=== PATIENT | male | born 1945 | race Caucasian/White ===

== ENCOUNTER 2016-12-27 06:30 | Inpatient (IN) | payer MEDICARE, BC ==
[~2016-12-27 06:30] MED LIST: ceFAZolin 1 GM in Premix Bag 1 BAG IV ONE
[2016-12-27] MEDS: Lactated Ringers 1,000 ML IV SCH ×2 (07:21→18:21)
--- NOTE | 2016-12-27 07:46 | PCM.PREANE ---
Preanesthetic Assessment - Anesthesia/Transfusion/Family Hx Anesthesia History: Prior Anesthesia Reaction (signigicant confusion leading to his request for spinal today) Other Type of Anesthesia Reaction Comment: confusion post anesthesia Family History of Anesthesia Reaction: No Transfusion History: No Prior Transfusion(s) Intubation History: Unknown - Review of Systems General: Weakness (Parkinsonian habitus) Pulmonary: No Symptoms Cardiovascular: No Symptoms Gastrointestinal: Constipation (chronic by hx) Neurological: Trouble Speaking, Change in Speech, Gait Disturbance, Other (all sx directed to Parkinsons) Other: Reports: Anxiety - Physical Assessment O2 Sat by Pulse Oximetry: 97 Respiratory Rate: 16 Vital Signs: Last Vital Signs Temp 98.1 F 12/27/16 07:00 Pulse 76 12/27/16 07:00 Resp 16 12/27/16 07:00 BP 180/103 H 12/27/16 07:00 Pulse Ox 97 12/27/16 07:00 Height: 6 ft 2 in Weight: 181 lb ASA Class: 3 Mental Status: Alert & Oriented x3 Airway Class: Mallampati = 2 Dentition: Reports: Normal Dentition Thyro-Mental Finger Breadths: 3 Mouth Opening Finger Breadths: 3 ROM/Head Extension: Limited/Partial (may be voluntary) Lungs: Clear to auscultation, Normal respiratory effort Cardiovascular: Regular Rate, Regular Rhythm, No Murmurs - Lab Values: Laboratory Last Values WBC 7.58 K/uL (4.0-11.0) 12/27/16 07:08 RBC 4.83 M/uL (4.50-5.90) 12/27/16 07:08 Hgb 12.5 g/dL (13.0-17.0) L 12/27/16 07:08 Hct 39.5 % (38.0-50.0) 12/27/16 07:08 MCV 81.8 fL (80.0-98.0) 12/27/16 07:08 MCH 25.9 pg (27.0-32.0) L 12/27/16 07:08 MCHC 31.6 g/dL (31.0-37.0) 12/27/16 07:08 RDW Std Deviation 42.4 fl (28.0-62.0) 12/27/16 07:08 RDW Coeff of Annamaria 14 % (11.0-15.0) 12/27/16 07:08 Plt Count 281 K/uL (150-400) 12/27/16 07:08 MPV 9.70 fL (7.40-12.00) 12/27/16 07:08 Neut % (Auto) 73.7 % (48.0-80.0) 12/27/16 07:08 Lymph % (Auto) 14.0 % (16.0-40.0) L 12/27/16 07:08 [place] % (Auto) 10.3 % (0.0-15.0) 12/27/16 07:08 Eos % (Auto) 1.7 % (0.0-7.0) 12/27/16 07:08 Baso % (Auto) 0.3 % (0.0-1.5) 12/27/16 07:08 Neut # (Auto) 5.6 K/uL (1.4-5.7) 12/27/16 07:08 Lymph # (Auto) 1.1 K/uL (0.6-2.4) 12/27/16 07:08 [place] # (Auto) 0.8 K/uL (0.0-0.8) 12/27/16 07:08 Eos # (Auto) 0.1 K/uL (0.0-0.7) 12/27/16 07:08 Baso # (Auto) 0.0 K/uL (0.0-0.1) 12/27/16 07:08 Nucleated RBC % 0.0 /100WBC 12/27/16 07:08 Nucleated RBCs # 0 K/uL 12/27/16 07:08 Sodium 140 mmol/L (136-146) 12/27/16 07:08 Potassium 4.0 mmol/L (3.5-5.1) 12/27/16 07:08 Chloride 107 mmol/L (98-110) 12/27/16 07:08 Carbon Dioxide 23 mmol/L (21-31) 12/27/16 07:08 BUN 20 mg/dL (6.0-23.0) 12/27/16 07:08 Creatinine 1.2 mg/dL (0.6-1.5) 12/27/16 07:08 Est Cr Clr Drug Dosing 64.62 mL/min 12/27/16 07:08 Estimated GFR (MDRD) 59.5 ml/min 12/27/16 07:08 Glucose 76 mg/dL (60-110) 12/27/16 07:08 Calcium 10.2 mg/dL (8.8-10.8) 12/27/16 07:08 - Allergies Allergies/Adverse Reactions: Allergies Allergy/AdvReac Type Severity Reaction Status Date / Time tamsulosin Allergy Hypotension Verified 12/22/16 13:14 - Blood Blood Available: No Product(s) Available: None - Anesthesia Plan Pre-Op Medication Ordered: None - Acknowledgements Anesthesia Type Planned: Spinal (with light sedation) Pt an Appropriate Candidate for the Planned Anesthesia: Yes Alternatives and Risks of Anesthesia Discussed w Pt/Guardian: Yes Pt/Guardian Understands and Agrees with Anesthesia Plan: Yes PreAnesthesia Questionnaire HEENT History: Reports: Other (see below) Other HEENT History: glasses Gastrointestinal History: Reports: Chronic constipation Genitourinary History: Reports: BPH, Prostate disorder Other Genitourinary History: enlarged prostate Neurological History: Reports: Parkinson's Psychiatric History: Reports: Anxiety Dermatologic History: Reports: None - Past Surgical History Head Surgeries/Procedures: Reports: None Musculoskeletal Surgical History: Reports: Knee replacement, Other (see below) Other Musculoskeletal Surgeries/Procedures:: left TKA, ( 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) Dermatological Surgical History: Reports: Skin biopsy - SUBSTANCE USE Smoking Status *Q: Never Smoker Days Per Week of Alcohol Use: 0 Recreational Drug Use History: No - HOME MEDS Home Medications: Home Meds Amantadine [Symmetrel] 100 mg PO BID 11/28/14 [History] Carbidopa/Levodopa [Sinemet 25-100 mg] 6 tab PO DAILY 11/28/14 [History] Finasteride [Proscar] 5 mg PO DAILY 11/28/14 [History] Sertraline [Zoloft] 100 mg PO DAILY 11/28/14 [History] rOPINIRole HCl [Requip] 4 mg PO ASDIRECTED 12/22/16 [History] - CURRENT (IN HOUSE) MEDS Current Meds: Current Medications Lactated Ringer's (Ringers, Lactated) 1,000 mls @ 100 mls/hr IV ASDIRECTED [facility] Last Admin: 12/27/16 07:21 Dose: 100 mls/hr Discontinued Medications Cefazolin Sodium/Dextrose 1 gm (/ Premix) 50 mls @ 100 mls/hr IV ONCALL ONE Stop: 12/27/16 00:30 Preanesthetic Assessment - ANESTHESIA/TRANSFUSION/FAMILY HX Other Type of Anesthesia Reaction Comment: confusion post anesthesia Family History of Anesthesia Reaction: No - PHYSICAL ASSESSMENT O2 Sat by Pulse Oximetry: 97 RR: 16 Vital Signs: Last Vital Signs Temp 98.1 F 12/27/16 07:00 Pulse 76 12/27/16 07:00 Resp 16 12/27/16 07:00 BP 180/103 H 12/27/16 07:00 Pulse Ox 97 12/27/16 07:00 Height: 6 ft 2 in Weight: 181 lb - LAB Values: Laboratory Last Values WBC 7.58 K/uL (4.0-11.0) 12/27/16 07:08 RBC 4.83 M/uL (4.50-5.90) 12/27/16 07:08 Hgb 12.5 g/dL (13.0-17.0) L 12/27/16 07:08 Hct 39.5 % (38.0-50.0) 12/27/16 07:08 MCV 81.8 fL (80.0-98.0) 12/27/16 07:08 MCH 25.9 pg (27.0-32.0) L 12/27/16 07:08 MCHC 31.6 g/dL (31.0-37.0) 12/27/16 07:08 RDW Std Deviation 42.4 fl (28.0-62.0) 12/27/16 07:08 RDW Coeff of Annamaria 14 % (11.0-15.0) 12/27/16 07:08 Plt Count 281 K/uL (150-400) 12/27/16 07:08 MPV 9.70 fL (7.40-12.00) 12/27/16 07:08 Neut % (Auto) 73.7 % (48.0-80.0) 12/27/16 07:08 Lymph % (Auto) 14.0 % (16.0-40.0) L 12/27/16 07:08 [place] % (Auto) 10.3 % (0.0-15.0) 12/27/16 07:08 Eos % (Auto) 1.7 % (0.0-7.0) 12/27/16 07:08 Baso % (Auto) 0.3 % (0.0-1.5) 12/27/16 07:08 Neut # (Auto) 5.6 K/uL (1.4-5.7) 12/27/16 07:08 Lymph # (Auto) 1.1 K/uL (0.6-2.4) 12/27/16 07:08 [place] # (Auto) 0.8 K/uL (0.0-0.8) 12/27/16 07:08 Eos # (Auto) 0.1 K/uL (0.0-0.7) 12/27/16 07:08 Baso # (Auto) 0.0 K/uL (0.0-0.1) 12/27/16 07:08 Nucleated RBC % 0.0 /100WBC 12/27/16 07:08 Nucleated RBCs # 0 K/uL 12/27/16 07:08 Sodium 140 mmol/L (136-146) 12/27/16 07:08 Potassium 4.0 mmol/L (3.5-5.1) 12/27/16 07:08 Chloride 107 mmol/L (98-110) 12/27/16 07:08 Carbon Dioxide 23 mmol/L (21-31) 12/27/16 07:08 BUN 20 mg/dL (6.0-23.0) 12/27/16 07:08 Creatinine 1.2 mg/dL (0.6-1.5) 12/27/16 07:08 Est Cr Clr Drug Dosing 64.62 mL/min 12/27/16 07:08 Estimated GFR (MDRD) 59.5 ml/min 12/27/16 07:08 Glucose 76 mg/dL (60-110) 12/27/16 07:08 Calcium 10.2 mg/dL (8.8-10.8) 12/27/16 07:08 - ALLERGIES Allergies/Adverse Reactions: Allergies Allergy/AdvReac Type Severity Reaction Status Date / Time tamsulosin Allergy Hypotension Verified 12/22/16 13:14
[2016-12-27] MEDS ORDERED: Midazolam 1 MG/ML 2 ML SDV ONE (07:48)
[2016-12-27] MEDS ORDERED: fentaNYL 100 MCG/2 ML SDV ONE (07:48)
[2016-12-27] MEDS ORDERED: Lidocaine 2% 5 ML SDV ONE (07:48)
[2016-12-27] MEDS ORDERED: Propofol 200 MG/20 ML SDV ONE (07:48)
--- NOTE | 2016-12-27 10:31 | PCM.POSTAN ---
POST ANESTHESIA ASSESSMENT - MENTAL STATUS Mental Status: alert, oriented - RESPIRATORY Respiratory Status: respiratory rate WNL, airway patent, O2 saturation stable - CARDIOVASCULAR CV Status: pulse rate WNL, blood pressure stable - GASTROINTESTINAL GI Status: no symptoms - PAIN Pain Score: 0 (spinal still active but receding) - POST OP HYDRATION Hydration Status: adequate & stable
[2016-12-27] MEDS: Carbidopa/Levodopa 25-100 MG Tab PO SCH ×3 (11:50→16:42)
[2016-12-27] MEDS: Amantadine 100 MG Cap PO SCH ×3 (11:50→16:43)
[2016-12-27] MEDS ORDERED: Sertraline 100 MG Tab PO SCH ×2 (11:55→11:57)
[2016-12-27] MEDS ORDERED: Belladonna Alkaloids/Opium 16.2-30 MG Supp RECTAL PRN (12:15)
[2016-12-27] MEDS: Sertraline 100 MG Tab PO SCH (12:25)
--- NOTE | 2016-12-27 13:07 | OR ---
SURGEON: Guero Aguila M.D. DATE OF PROCEDURE: 12/27/2016 PREOPERATIVE DIAGNOSIS: Benign prostatic hyperplasia. POSTOPERATIVE DIAGNOSIS: Benign prostatic hyperplasia. PROCEDURE PERFORMED: TURP. DESCRIPTION OF PROCEDURE: The patient was given spinal anesthesia, placed in dorsal lithotomy position, prepped and draped in sterile drapes. The 24, 26, and 28 sounds were passed through the urethra without difficulty with some dilating effect. The resectoscope was then placed in without difficulty. The prostate was resected in the usual manner, starting with the floor, going on laterally and anteriorly. At the end of the resection, all prostatic chips were removed. Both the ureteral orifices were intact. The area of the external sphincter was intact. A 22 three-way Minor catheter was introduced in the bladder, 60 mL in the balloon, and that was connected to bladder irrigation. The patient tolerated the procedure well. Estimated blood loss was 200 mL. He was moved to recovery room in good condition. ARIE / YOSHI /[id number]
[2016-12-27] MEDS: rOPINIRole 1 MG Tab PO SCH (13:10)
[2016-12-27] MEDS ORDERED: Sodium Chloride 0.9% 10 ML Syringe FLUSH PRN (18:37)
[2016-12-27] MEDS ORDERED: Sodium Chloride 0.9% 2.5 ML Syringe FLUSH PRN (18:37)
[2016-12-28] MEDS: Sertraline 100 MG Tab PO SCH (05:30)
[2016-12-28] MEDS: Carbidopa/Levodopa 25-100 MG Tab PO SCH ×5 (05:30→16:15)
[2016-12-28] MEDS: Amantadine 100 MG Cap PO SCH ×2 (05:31→13:49)
[2016-12-28] MEDS ORDERED: Sertraline 100 MG Tab PO SCH (06:00)
--- NOTE | 2016-12-28 07:50 | PCM48HPAN ---
Post Anesthesia Note - EVALUATION WITHIN 48HRS OF ANESTHETIC Vital Signs in Normal Range: Yes Patient Participated in Evaluation: Yes Respiratory Function Stable: Yes Airway Patent: Yes Cardiovascular Function Stable: Yes Hydration Status Stable: Yes Pain Control Satisfactory: Yes Nausea and Vomiting Control Satisfactory: Yes Mental Status Recovered: Yes
[2016-12-28] MEDS: rOPINIRole 1 MG Tab PO SCH ×2 (08:37→13:49)
[2016-12-28] MEDS ORDERED: Bisacodyl 10 MG Supp RECTAL ONE (10:20)
[2016-12-28] MEDS ORDERED: Finasteride 5 MG Tab PO SCH (19:00)
[2016-12-29] MEDS: Carbidopa/Levodopa 25-100 MG Tab PO SCH ×5 (06:09→16:59)
[2016-12-29] MEDS: Sertraline 100 MG Tab PO SCH (06:10)
[2016-12-29] MEDS: Amantadine 100 MG Cap PO SCH ×2 (06:10→15:00)
[2016-12-29] MEDS: rOPINIRole 1 MG Tab PO SCH ×2 (08:50→15:00)
--- NOTE | 2016-12-29 09:50 | PCM.SN ---
- Free Text/Narrative Note: 12/27 16 doing well. 12/28/16 doing well, home tomorrow
--- NOTE | 2016-12-29 12:51 | PCM.CONS ---
H&P History of Present Illness - General Admit Problem/Dx: Admission Diagnosis/Problem Admission Diagnosis/Problem Transurethral prostatectomy - History of Present Illness Initial Comments - Free Text/Narative: 71 yo male with pmh of Parkinson's who is admitted for an elective TURP. Patient is living at home and using walker for ambulation at baseline. Patient does have some cognitive impairment but according to he came out of anesthesia without much difficulty. He was feeling fine today but while walking from chair to bed without his walker he felt dizzy and fell against the wall. his shoulder and head hit the wall on his way down. He denies any loss of consciousness. He denies any chest pain or shortness of breath. Penis Pain Score (Numeric/FACES): 0 - Related Data Allergies/Adverse Reactions: Allergies Allergy/AdvReac Type Severity Reaction Status Date / Time tamsulosin Allergy Hypotension Verified 12/22/16 13:14 Home Medications: Home Meds Amantadine [Symmetrel] 100 mg PO BID 11/28/14 [History] Carbidopa/Levodopa [Sinemet 25-100 mg] 1 tab PO QID@09,12,15,17 11/28/14 [ History] Finasteride [Proscar] 5 mg PO DAILY 11/28/14 [History] Sertraline [Zoloft] 100 mg PO DAILY 11/28/14 [History] rOPINIRole HCl [Requip] 2 mg PO BID@08,14 12/22/16 [History] Carbidopa/Levodopa [Carbidopa-Levodopa 25-100 Tab] 2 tab PO DAILY@0600 12/27/16 [History] Nitrofurantoin [place]/Macrocryst [Macrobid] 100 mg PO BID #10 cap 12/29/16 [Rx] Past Medical History HEENT History: Reports: Other (see below) Other HEENT History: glasses Gastrointestinal History: Reports: Chronic constipation Genitourinary History: Reports: BPH, Prostate disorder Other Genitourinary History: enlarged prostate Neurological History: Reports: Parkinson's Psychiatric History: Reports: Anxiety Dermatologic History: Reports: None - Past Surgical History Head Surgeries/Procedures: Reports: None Musculoskeletal Surgical History: Reports: Knee replacement, Other (see below) Other Musculoskeletal Surgeries/Procedures:: left TKA, ( 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) Dermatological Surgical History: Reports: Skin biopsy Social & Family History - Tobacco Use Smoking Status *Q: Never Smoker - Alcohol Use Days Per Week of Alcohol Use: 0 - Recreational Drug Use Recreational Drug Use: No H&P Review of Systems - Review of Systems: Review Of Systems: See Below General: Reports: no symptoms HEENT: Reports: no symptoms Pulmonary: Reports: No Symptoms Cardiovascular: Reports: no symptoms Gastrointestinal: Reports: No symptoms Genitourinary: Reports: no symptoms Musculoskeletal: Reports: no symptoms Skin: Reports: no symptoms Psychiatric: Reports: no symptoms Neurological: Reports: No Symptoms Hematologic/Lymphatic: Reports: no symptoms Immunologic: Reports: no symptoms Exam - Exam Exam: See Below - Vital Signs Vital Signs: Last Vital Signs Temp 37.0 C 12/29/16 10:55 Pulse 92 12/29/16 11:00 Resp 16 12/29/16 11:00 BP 100/58 L 12/29/16 11:00 Pulse Ox 97 12/29/16 11:00 Weight: 82.1 kg - Exam General: alert, cooperative. No: mild distress HEENT: Mucosa moist & pink, Posterior pharynx clear Neck: No: lymphadenopathy Lungs: Clear to auscultation, Normal respiratory effort Cardiovascular: regular rate, regular rhythm Abdomen: normal bowel sounds, soft Extremities: 3, normal inspection, 10 Skin: warm, dry, intact Neuro Extensive - Motor, Sensory, Reflexes: CN II-XII intact, normal reflexes, tremor, other (feels light headed when standing up) - Patient Data Result Diagrams: 12/27/16 07:08 12/27/16 07:08 Consult PN Assessment/Plan Procedures: Procedures ASSAY OF PSA TOTAL (11/16/16) CHEST X-RAY 2VW FRONTAL&LATL (02/10/16) CINE/VID X-RAY THROAT/ESOPH (09/05/16) COMPLETE CBC W/AUTO DIFF WBC (02/10/16) CT HEAD/BRAIN W/O DYE (11/28/14) EMERGENCY DEPT VISIT (11/28/14) EMERGENCY DEPT VISIT (11/28/14) EVALUATE SPEECH PRODUCTION (11/21/14) INFLUENZA ASSAY W/OPTIC (10/03/14) METABOLIC PANEL TOTAL CA (02/10/16) MOTION FLUOROSCOPY/SWALLOW (09/05/16) NEUROMUSCULAR REEDUCATION (06/02/16) OFFICE/OUTPATIENT VISIT EST (03/30/16) OFFICE/OUTPATIENT VISIT EST (10/26/15) OFFICE/OUTPATIENT VISIT EST (12/23/14) OFFICE/OUTPATIENT VISIT EST (04/09/14) OFFICE/OUTPATIENT VISIT NEW (12/21/15) ORAL FUNCTION THERAPY (09/08/16) PPSV23 VACC 2 YRS+ SUBQ/IM (02/20/15) PT EVALUATION (04/21/16) ROUTINE VENIPUNCTURE (11/16/16) SPEECH/HEARING THERAPY (12/16/14) THERAPEUTIC ACTIVITIES (05/25/16) THERAPEUTIC EXERCISES (05/25/16) URINALYSIS AUTO W/SCOPE (12/22/16) URINALYSIS NONAUTO W/SCOPE (03/25/15) URINE CULTURE/COLONY COUNT (12/22/16) VIT D 1 25-DIHYDROXY (11/28/14) Problem List Initiated/Reviewed/Updated: Yes My Orders last 24 hours: My Active Orders 12/29/16 11:26 Telemetry Monitoring [Cardiac Monitoring] [RC] . DIRECTED 12/29/16 12:21 BASIC METABOLIC PANEL,BMP [CHEM] Routine 12/29/16 12:22 EKG Documentation Completion [RC] ROUTINE Chest 2V [CR] Routine Head wo Cont [CT] Routine 12/29/16 12:24 Orthostatic Vital Signs [RC] ASDIRECTED 12/29/16 12:38 CBC WITH AUTO DIFF [HEME] Routine Plan: 71 yo male s/p TURP with pmh of parkinson's who had a fall. The plan is to monitor overnight on telemetry. We will check CBC, BMP, CXR, EKG, head CT, and orthostatic vital signs.
--- NOTE | 2016-12-29 13:47 | CR ---
EXAMINATION: Two-view chest (PA and Lateral views). HISTORY: Fall. Comparison: 02/10/2016. FINDINGS: The trachea is midline. The cardiomediastinal silhouette is within normal limits. No pulmonary infil trates, effusions or pneumothorax. There is mild hyperinflation with a chronic interstitial prominen ce. Osseous structures appear unremarkable. IMPRESSION: No acute cardiopulmonary process.
--- NOTE | 2016-12-29 15:05 | CT ---
EXAMINATION: Non contrast CT head. Coronal and sagittal reformats. HISTORY: Fall FINDINGS: No evidence of intra or extra axial hemorrhage, mass, midline shift, hydrocephalus or edema. No hy poattenuation changes in the major vascular territories to suggest acute infarct. No abnormal intracranial calcifications are detected. No evidence of substantial vascular calcifica tions. Air-fluid levels are noted within the maxillary sinuses. Pituitary fossa appears unremarkable . The calvarium is intact. No evidence of skull fracture. IMPRESSION: 1. No acute intracranial findings. 2. Air-fluid levels within the maxillary sinuses, this could represent sinusitis versus hemorrhage.
[2016-12-29] MEDS ORDERED: Sodium Chloride 0.9% 1,000 ML IV SCH (15:15)
[2016-12-30 05:20] LABS: CHLORIDE,CL 110 mmol/L (98-110); SODIUM,NA 139 mmol/L (136-146)
[2016-12-30] MEDS: Carbidopa/Levodopa 25-100 MG Tab PO SCH ×5 (06:49→16:25)
[2016-12-30] MEDS: Amantadine 100 MG Cap PO SCH ×2 (06:49→12:59)
[2016-12-30] MEDS: Sertraline 100 MG Tab PO SCH (06:49)
[2016-12-30] MEDS: rOPINIRole 1 MG Tab PO SCH ×2 (07:47→12:59)
--- NOTE | 2016-12-30 09:13 | PCM.CONSN ---
- General Info Date of Service: 12/30/16 Admission Dx/Problem (Free Text): Admission Diagnosis/Problem Admission Diagnosis/Problem Transurethral prostatectomy Subjective Update: Doing well this morning. No dizziness or lightheadedness. Has sinus congestion. Denies fever, chills, night sweats. Eating well. Functional Status: Reports: pain controlled, tolerating diet, ambulating - Review of Systems General: Denies: Fever, Weakness HEENT: Reports: sinus congestion. Denies: headaches, sore throat, visual changes Pulmonary: Denies: shortness of breath, hemoptysis, wheezing Cardiovascular: Denies: Chest Pain, Palpitations, Edema Gastrointestinal: Denies: Abdominal pain, Nausea, Vomiting Musculoskeletal: Denies: neck pain, leg pain Skin: Denies: cyanosis Neurological: Denies: Confusion, Dizziness Psychiatric: Denies: confusion - Patient Data Vitals - most recent: Last Vital Signs Temp 36.2 C 12/30/16 08:00 Pulse 95 12/30/16 08:00 Resp 20 12/30/16 08:00 BP 120/70 12/30/16 08:00 Pulse Ox 95 12/30/16 08:00 Orthostatic Blood Pressure [ 74/54 Standing] Orthostatic Blood Pressure [ 120/70 Sitting] Orthostatic Blood Pressure [ 127/70 Supine] Weight - most recent: 82.1 kg I&O - last 24 hours: Intake & Output 12/29/16 12/30/16 12/30/16 22:59 06:59 14:59 Intake Total 1360 900 Output Total 395 1500 Balance 965 -600 Lab Results last 24 hrs: Laboratory Results - last 24 hr 12/29/16 12/29/16 12/30/16 Range/Units 12:40 12:40 04:14 WBC 12.48 H 7.72 (4.0-11.0) K/uL RBC 4.83 4.42 L (4.50-5.90) M/uL Hgb 12.7 L 11.7 L (13.0-17.0) g/dL Hct 39.5 35.9 L (38.0-50.0) % MCV 81.8 81.2 (80.0-98.0) fL MCH 26.3 L 26.5 L (27.0-32.0) pg MCHC 32.2 32.6 (31.0-37.0) g/dL RDW Std Deviation 42.5 42.1 (28.0-62.0) fl RDW Coeff of Annamaria 14 14 (11.0-15.0) % Plt Count 308 297 (150-400) K/uL MPV 10.10 9.90 (7.40-12.00) fL Neut % (Auto) 84.9 H 61.5 (48.0-80.0) % Lymph % (Auto) 6.1 L 22.4 (16.0-40.0) % [place] % (Auto) 8.0 10.0 (0.0-15.0) % Eos % (Auto) 0.8 5.7 (0.0-7.0) % Baso % (Auto) 0.2 0.4 (0.0-1.5) % Neut # (Auto) 10.6 H 4.8 (1.4-5.7) K/uL Lymph # (Auto) 0.8 1.7 (0.6-2.4) K/uL [place] # (Auto) 1.0 H 0.8 (0.0-0.8) K/uL Eos # (Auto) 0.1 0.4 (0.0-0.7) K/uL Baso # (Auto) 0.0 0.0 (0.0-0.1) K/uL Nucleated RBC % 0.0 0.0 /100WBC Nucleated RBCs # 0 0 K/uL Sodium 135 L (136-146) mmol/L Potassium 4.4 (3.5-5.1) mmol/L Chloride 104 (98-110) mmol/L Carbon Dioxide 22 (21-31) mmol/L BUN 26 H (6.0-23.0) mg/dL Creatinine 1.6 H (0.6-1.5) mg/dL Est Cr Clr Drug Dosing 48.46 mL/min Estimated GFR (MDRD) 42.7 ml/min Glucose 126 H (60-110) mg/dL Calcium 10.4 (8.8-10.8) mg/dL 12/30/16 Range/Units 04:14 WBC (4.0-11.0) K/uL RBC (4.50-5.90) M/uL Hgb (13.0-17.0) g/dL Hct (38.0-50.0) % MCV (80.0-98.0) fL MCH (27.0-32.0) pg MCHC (31.0-37.0) g/dL RDW Std Deviation (28.0-62.0) fl RDW Coeff of Annamaria (11.0-15.0) % Plt Count (150-400) K/uL MPV (7.40-12.00) fL Neut % (Auto) (48.0-80.0) % Lymph % (Auto) (16.0-40.0) % [place] % (Auto) (0.0-15.0) % Eos % (Auto) (0.0-7.0) % Baso % (Auto) (0.0-1.5) % Neut # (Auto) (1.4-5.7) K/uL Lymph # (Auto) (0.6-2.4) K/uL [place] # (Auto) (0.0-0.8) K/uL Eos # (Auto) (0.0-0.7) K/uL Baso # (Auto) (0.0-0.1) K/uL Nucleated RBC % /100WBC Nucleated RBCs # K/uL Sodium 139 (136-146) mmol/L Potassium 4.8 (3.5-5.1) mmol/L Chloride 110 (98-110) mmol/L Carbon Dioxide 21 (21-31) mmol/L BUN 22 (6.0-23.0) mg/dL Creatinine 1.1 (0.6-1.5) mg/dL Est Cr Clr Drug Dosing 70.49 mL/min Estimated GFR (MDRD) > 60.0 ml/min Glucose 80 (60-110) mg/dL Calcium 9.7 (8.8-10.8) mg/dL Med Orders - Current: Current Medications Amantadine HCl (Symmetrel) 100 mg PO DAILY@0600,1400 [facility] Last Admin: 12/30/16 06:49 Dose: 100 mg Belladonna Alkaloids/Opium (B & O Supprettes No. 15a) 1 supp RECTAL Q4H PRN PRN Reason: Spasms Carbidopa/Levodopa (Sinemet 25-100 Mg) 1 tab PO 0900,1200,1500,1700 [facility] Last Admin: 12/29/16 16:59 Dose: 1 tab Carbidopa/Levodopa (Sinemet 25-100 Mg) 2 tab PO DAILY@0600 [facility] Last Admin: 12/30/16 06:49 Dose: 2 tab Ropinirole HCl (Requip) 2 mg PO DAILY@0800,1400 [facility] Last Admin: 12/30/16 07:47 Dose: 2 mg Sertraline HCl (Zoloft) 100 mg PO DAILY@0600 [facility] Last Admin: 12/30/16 06:49 Dose: 100 mg Sodium Chloride (Saline Flush) 10 ml FLUSH ASDIRECTED PRN PRN Reason: Keep Vein Open Sodium Chloride (Saline Flush) 2.5 ml FLUSH ASDIRECTED PRN PRN Reason: Keep Vein Open Discontinued Medications Amantadine HCl (Symmetrel) 100 mg PO DAILY@0600,1400 [facility] Last Admin: 12/27/16 13:19 Dose: Not Given Bisacodyl (Dulcolax) 10 mg RECTAL ONETIME ONE Stop: 12/28/16 10:21 Last Admin: 12/28/16 11:02 Dose: 10 mg Fentanyl (Sublimaze) Confirm Administered Dose 100 mcg .ROUTE .STK-MED ONE Stop: 12/27/16 07:49 Finasteride (Proscar) 5 mg PO DAILY@1900 [facility] Lactated Ringer's (Ringers, Lactated) 1,000 mls @ 100 mls/hr IV ASDIRECTED [facility] Last Admin: 12/27/16 18:21 Dose: 100 mls/hr Cefazolin Sodium/Dextrose 1 gm (/ Premix) 50 mls @ 100 mls/hr IV ONCALL ONE Stop: 12/27/16 00:30 Last Admin: 12/27/16 11:35 Dose: Not Given Cefazolin Sodium/Dextrose (Ancef) Confirm Administered Dose 50 mls @ as directed .ROUTE .STK-MED ONE Stop: 12/27/16 07:55 Sodium Chloride (Normal Saline) 1,000 mls @ 125 mls/hr IV ASDIRECTED [facility] Stop: 12/29/16 23:14 Last Admin: 12/29/16 15:44 Dose: 125 mls/hr Lidocaine (Xylocaine-Mpf 2%) Confirm Administered Dose 5 ml .ROUTE .STK-MED ONE Stop: 12/27/16 07:49 Midazolam HCl (Versed 1 Mg/Ml) Confirm Administered Dose 2 mg .ROUTE .STK-MED ONE Stop: 12/27/16 07:49 Propofol (Diprivan 20 Ml) Confirm Administered Dose 200 mg .ROUTE .STK-MED ONE Stop: 12/27/16 07:49 Sertraline HCl (Zoloft) 100 mg PO DAILY@0600 [facility] Sertraline HCl (Zoloft) 100 mg PO DAILY@0600 [facility] Sertraline HCl (Zoloft) 100 mg PO DAILY@0600 [facility] - Exam Quality Assessment: DVT prophylaxis General: alert, oriented, cooperative, no acute distress HEENT: Pupils equal, Pupils reactive, EOMI, Mucous membr. moist/pink Neck: supple Lungs: Clear to auscultation, Normal respiratory effort Cardiovascular: Regular Rate, Regular Rhythm Abdomen: bowel sounds present, soft, no tenderness, no distension Back Exam: normal inspection Extremities: no edema, normal pulses, no tenderness/swelling, no calf tenderness Peripheral Pulses: 2+: radial (L), radial (R), posterior tibial (L), posterior tibial (R), dorsalis pedis (L), dorsalis pedis (R) Skin: warm, dry, intact Psy/Mental Status: alert, normal affect, normal mood Consult PN Assessment/Plan Procedures: Procedures ASSAY OF PSA TOTAL (11/16/16) CHEST X-RAY 2VW FRONTAL&LATL (02/10/16) CINE/VID X-RAY THROAT/ESOPH (09/05/16) COMPLETE CBC W/AUTO DIFF WBC (02/10/16) CT HEAD/BRAIN W/O DYE (11/28/14) EMERGENCY DEPT VISIT (11/28/14) EMERGENCY DEPT VISIT (11/28/14) EVALUATE SPEECH PRODUCTION (11/21/14) INFLUENZA ASSAY W/OPTIC (10/03/14) METABOLIC PANEL TOTAL CA (02/10/16) MOTION FLUOROSCOPY/SWALLOW (09/05/16) NEUROMUSCULAR REEDUCATION (06/02/16) OFFICE/OUTPATIENT VISIT EST (03/30/16) OFFICE/OUTPATIENT VISIT EST (10/26/15) OFFICE/OUTPATIENT VISIT EST (12/23/14) OFFICE/OUTPATIENT VISIT EST (04/09/14) OFFICE/OUTPATIENT VISIT NEW (12/21/15) ORAL FUNCTION THERAPY (09/08/16) PPSV23 VACC 2 YRS+ SUBQ/IM (02/20/15) PT EVALUATION (04/21/16) ROUTINE VENIPUNCTURE (11/16/16) SPEECH/HEARING THERAPY (12/16/14) THERAPEUTIC ACTIVITIES (05/25/16) THERAPEUTIC EXERCISES (05/25/16) URINALYSIS AUTO W/SCOPE (12/22/16) URINALYSIS NONAUTO W/SCOPE (03/25/15) URINE CULTURE/COLONY COUNT (12/22/16) VIT D 1 25-DIHYDROXY (11/28/14) (1) Orthostatic hypotension SNOMED Code(s): 09853944 Code(s): I95.1 - ORTHOSTATIC HYPOTENSION Priority: High Current Visit: Yes (2) Parkinson's disease SNOMED Code(s): 42174352 Code(s): G20 - PARKINSON'S DISEASE Priority: Low Current Visit: No Problem List Initiated/Reviewed/Updated: Yes Plan: 71 yo male s/p TURP with pmh of parkinson's who had a fall and found to have orthostatic hypotension. Patient was given 1 L normal saline bolus yesterday which improved blood pressure. He did have some continue orthostasis this am so was given an additional 500ml NS bolus which resolved orthostatic hypotension. does note that his "blood pressure is always up and down" even when he was first diagnosed with Parkinson's at [place]. CBC, BMP, CXR, and EKG unremarkable. CT of head revealed no acute pathology, some sinus congestion. Volume depletion after surgery most likely etiology of orthostatic hypotension leading to fall. Resolved now with IVF bolus. Discharge as per Dr. Aguila.
[2016-12-30] MEDS ORDERED: Sodium Chloride 0.9% 500 ML IV ONE (11:05)
[2016-12-30 16:34] VITALS: BP 122/81
--- NOTE | 2017-01-02 06:18 | DISCH ---
DATE OF DISCHARGE: 12/30/2016 PRIMARY CARE PHYSICIAN: Nate Pitt M.D. HOSPITAL COURSE: The patient is 71 years old. He had a TURP, was admitted to the hospital on the 4th of this month. Postoperatively, he did very well. The catheter was removed on the 2nd postoperative day. He was able to void without difficulty and the urine was reasonably clear. Pathology is pending. He was sent home on his previous home medications. ARIE BELLE /[id number]
== END 2016-12-30 17:32 | disposition home or self-care (01) | DRG 714 ==
LOC: MW.MS 06:30
PROVIDERS: ADMIT Urology; ATTEND Urology
PROC: 0VT08ZZ Resection of Prostate, Via Natural or Artificial Opening Endoscopic (ICD-10-PCS; principal; 2016-12-27)
DX: N40.0 Benign prostatic hyperplasia without lower urinary tract symptoms (principal); G20 Parkinson's disease; G31.84 Mild cognitive impairment of uncertain or unknown etiology; Z88.8 Allergy status to other drugs, medicaments and biological substances; Z79.899 Other long term (current) drug therapy; F41.9 Anxiety disorder, unspecified; I95.9 Hypotension, unspecified; W18.39XA Other fall on same level, initial encounter; Y93.89 Activity, other specified; Y92.019 Unspecified place in single-family (private) house as the place of occurrence of the external cause
CPT/HCPCS: 00914; 36415; 51703; 70450; 70450-26; 71020; 71020-26; 80048; 85025; 88305; 93005; 97161-GP; A9270-GY; C1769; J0690; J2250; J2704; J3010; J7040; J7120

== ENCOUNTER → 2017-01-30 | Outpatient (CLI) | payer MEDICARE, BC | LOC: MW.CHNEURO 08:00 | PROVIDERS: ATTEND Psychiatry & Neurology Neuromuscular Medicine | DX: G20 Parkinson's disease (principal) | CPT/HCPCS: 99214 ==

== ENCOUNTER → 2017-02-16 | Outpatient (CLI) | payer MEDICARE, BC | END | disposition home or self-care (01) | LOC: MW.CHFP 11:02 | PROVIDERS: ATTEND Emergency Medicine | DX: G90.3 Multi-system degeneration of the autonomic nervous system (principal); R55 Syncope and collapse | CPT/HCPCS: 36415; 80048; 85027; G0463 ==

== ENCOUNTER 2017-03-04 19:14 | Emergency (ER) | payer MEDICARE, BC ==
--- NOTE | 2017-03-04 19:45 | EDM.PDOC ---
ED HPI GENERAL MEDICAL PROBLEM - General Chief Complaint: Gastrointestinal Problem Stated Complaint: CONSTIPATION Time Seen by Provider: 03/04/17 19:36 Source of Information: Reports: Patient History Limitations: Reports: No Limitations - History of Present Illness INITIAL COMMENTS - FREE TEXT/NARRATIVE: HISTORY AND PHYSICAL: []71-year-old male presenting with concerns over not having a bowel movement today History of Present Illness: []has history of Parkinson disease carbidopa levodopa Review of Systems: As per history of present illness and below otherwise all systems reviewed and negative. Past medical history: As per history of present illness and as reviewed below otherwise noncontributory. Surgical history: As per history of present illness and as reviewed below otherwise noncontributory. Social history: No reported history of drug or alcohol abuse. Family history: As per history of present illness and as reviewed below otherwise noncontributory. Physical exam: Alert and oriented gentleman at bedside answering questions appropriately. Patient is requesting an enema. He took a bottle of magnesium citrate 3 hours before coming to the emergency department HEENT: Atraumatic, normocehpalic, pupils reactive, negative for conjunctival pallor or scleral icterus, mucous membranes moist, throat clear, neck supple, nontender, trachea midline. Lungs: Clear to auscultation, breath sounds equal bilaterally, chest non tender. Heart: S1S2, regular, negative for clicks, rubs, or JVD. Abdomen: Soft, nondistended, nontender. Negative for masses or hepatossplenmegaly. Negative for costovertebral tenderness. Pelvis: Stable nontender. Genitourinary: Deferred. Rectal: Deferred Extremities: Atraumatic, negative for cords or calf pain. Neurovascular unremarkable. Neuro: Awake, alert, oriented. Cranial nerves II through XII unremarkable. Cerebellum unremarkable. Motor and sensory unremarkable throughout. Exam nonfocal. Discussed with at some length of time the different remedies that can be tried for daily use in keeping soft and avoiding constipation With fleets enema and help with some disimpaction patient was able to empty the stool Diagnostics: [] Therapeutics: [Fleet Enema] Impression: [Constipation] Plan: [Home Take MiraLAX 1 capsule daily and beverage of choice May take [id number] stool softener Follow-up through primary care provider] Definitive disposition and diagnosis as appropriate pending reevaluation and review of above. Onset: Today Duration: Hour(s):, Getting Worse Location: Reports: Abdomen Abdominal Pain Score (Numeric/FACES): 3 - Related Data Allergies Allergy/AdvReac Type Severity Reaction Status Date / Time tamsulosin Allergy Hypotension Verified 03/04/17 19:17 Home Meds: Home Meds Amantadine [Symmetrel] 100 mg PO TID 11/28/14 [History] Carbidopa/Levodopa [Sinemet 25-100 mg] 1 tab PO DAILY 11/28/14 [History] Sertraline [Zoloft] 100 mg PO DAILY 11/28/14 [History] rOPINIRole HCl [Requip] 2 mg PO DAILY 12/22/16 [History] Past Medical History HEENT History: Reports: None Other HEENT History: glasses Cardiovascular History: Reports: None Respiratory History: Reports: None Gastrointestinal History: Reports: Chronic Constipation Genitourinary History: Reports: BPH, Prostate Disorder Other Genitourinary History: enlarged prostate Musculoskeletal History: Reports: None Neurological History: Reports: Parkinson's Psychiatric History: Reports: Anxiety Endocrine/Metabolic History: Reports: None Hematologic History: Reports: None Immunologic History: Reports: None Oncologic (Cancer) History: Reports: None Dermatologic History: Reports: None - Infectious Disease History Infectious Disease History: Reports: Chicken Pox, Measles, Mumps - Past Surgical History Head Surgeries/Procedures: Reports: None HEENT Surgical History: Reports: None GI Surgical History: Reports: None Musculoskeletal Surgical History: Reports: Knee Replacement Dermatological Surgical History: Reports: Skin Biopsy Social & Family History - Tobacco Use Smoking Status *Q: Never Smoker - Caffeine Use Caffeine Use: Reports: Coffee - Alcohol Use Days Per Week of Alcohol Use: 0 - Recreational Drug Use Recreational Drug Use: No ED ROS GENERAL - Review of Systems Review Of Systems: ROS reveals no pertinent complaints other than HPI. ED EXAM, GI/ABD - Physical Exam Exam: See Below (See dictation) Course - Vital Signs Last Recorded V/S: Last Vital Signs Temp 36.2 C 03/04/17 19:17 Pulse 97 03/04/17 19:17 Resp 18 03/04/17 19:17 BP 172/92 H 03/04/17 19:17 Pulse Ox 96 03/04/17 19:17 Departure - Departure Time of Disposition: 20:38 Disposition: Home, Self-Care 01 Condition: good Clinical Impression: Constipation - Discharge Information Instructions: Constipation, Adult, [id number] Forms: ED Department Discharge Additional Instructions: The following information is given to patients seen in the emergency department who are being discharged to home. This information is to outline your options for follow-up care. We provide all patients seen in our emergency department with a follow-up referral. The need for follow-up, as well as the timing and circumstances, are variable depending upon the specifics of your emergency department visit. If you don't have a primary care physician on staff, we will provide you with a referral. We always advise you to contact your personal physician following an emergency department visit to inform them of the circumstance of the visit and for follow-up with them and/or the need for any referrals to a consulting specialist. The emergency department will also refer you to a specialist when appropriate. This referral assures that you have the opportunity for followup care with a specialist. All of these measure are taken in an effort to provide you with optimal care, which includes your followup. Under all circumstances we always encourage you to contact your private physician who remains a resource for coordinating your care. When calling for followup care, please make the office aware that this follow-up is from your recent emergency room visit. If for any reason you are refused follow-up, please contact the [facility] emergency department at and asked to speak to the emergency department charge nurse. Constipation can be controlled with use of MiraLAX and other available over-the- counter agents He may try a mixture of Mylanta mineral oil and milk of magnesia daily
[2017-03-04 20:50] VITALS: BP 130/82
== END 2017-03-04 20:49 | disposition home or self-care (01) ==
LOC: MW.ED 19:14
DX: K59.00 Constipation, unspecified (principal); G20 Parkinson's disease; F41.9 Anxiety disorder, unspecified; Z88.8 Allergy status to other drugs, medicaments and biological substances; Z79.899 Other long term (current) drug therapy; Z96.659 Presence of unspecified artificial knee joint
CPT/HCPCS: 99282; 99283

== ENCOUNTER 2017-10-29 11:13 | Observation (INO) | payer MEDICARE, BC ==
[2017-10-29] MEDS ORDERED: Sodium Chloride 0.9% 2.5 ML Syringe FLUSH PRN (11:26)
[2017-10-29] MEDS ORDERED: Sodium Chloride 0.9% 10 ML Syringe FLUSH PRN (11:26)
--- NOTE | 2017-10-29 11:28 | EDM.PDOC ---
ED HPI GENERAL MEDICAL PROBLEM - General Chief Complaint: General Stated Complaint: WEAKNESS Time Seen by Provider: 10/29/17 11:18 - History of Present Illness INITIAL COMMENTS - FREE TEXT/NARRATIVE: HISTORY AND PHYSICAL: History of present illness: The patient is a 72-year-old male who arrives via EMS with after a 30 to 60 second episode of blank stare and then brief syncope which occurred at home without any trauma. The tells me he has a long-standing history of Parkinson's which has been progressing over the last 6 months with more frequent falls and gait instability and he also has a history of orthostatic hypotension. The patient has had no systemic complaints recently of fever chills cough chest pain shortness of breath and has had no vomiting or diarrhea. The states that he was having a normal day when he was sitting at the counter and she noted him to be staring with a blank stare and not responding to her voice. When she approached him he then proceeded to slump forward and she caught him and he did not fall to the ground. She said the entire episode lasted at the most 60 seconds but she cannot be completely sure. He did not have any abnormal motor activity during that time and he had no loss of bowel or bladder. The patient currently has no complaints here in the ED of headache chest pain shortness of breath or any focal neurologic changes in his extremities. He has a long-standing history of tremors and twitching in his legs due to the Parkinson's. The said he did have a fall recently and he has some residual scratches on the left side of his face but would definitely did not pass out or blackout. She says that he'll have episodes where he "nods off" when he is in his recliner but she is always attributed those to falling asleep and his eyes are always closed and this was very different because his eyes were wide open. Review of systems: As per history of present illness and below otherwise all systems reviewed and negative. Past medical history: As per history of present illness and as reviewed below otherwise noncontributory. Surgical history: As per history of present illness and as reviewed below otherwise noncontributory. Social history: No reported history of drug or alcohol abuse. Family history: As per history of present illness and as reviewed below otherwise noncontributory. Physical exam: Gen.: Well-developed well-nourished man who is nontoxic and speaking at his baseline here in the ED. He is visible twitching of his lower legs left greater than right which is baseline per the . Vital signs were noted by me HEENT: Atraumatic, normocephalic, pupils reactive, negative for conjunctival pallor or scleral icterus, mucous membranes moist, throat clear, neck supple, nontender, trachea midline. Lungs: Clear to auscultation, breath sounds equal bilaterally, chest nontender. Heart: S1S2, regular rate and rhythm no overt murmurs Abdomen: Soft, nondistended, nontender. Negative for masses or hepatosplenomegaly. NABS Pelvis: Stable nontender. Genitourinary: Deferred. Rectal: Deferred. Extremities: Atraumatic, negative for cords or calf pain. Neurovascular unremarkable. No pedal edema and no palpable bony deformities or tenderness Neuro: Awake, alert, oriented. Motor and sensory unremarkable throughout. Exam nonfocal. Back: There are no midline step-offs tenderness or defects of the thoracic or lumbar spine no CVA tenderness and no soft tissue tenderness Diagnostics: EKG CBC CMP INR troponin TSH chest x-ray CT scan of the head Therapeutics: IV O2 monitor aspirin if CT head is negative Case was discussed with Dr. Balderrama who accepts the patient for observation admission and I have also gone over all testing results with the patient and at bedside. Impression: Brief syncopal event etiology unclear Definitive disposition and diagnosis as appropriate pending reevaluation and review of above. - Related Data Allergies Allergy/AdvReac Type Severity Reaction Status Date / Time tamsulosin Allergy Hypotension Verified 10/29/17 11:14 Home Meds: Home Meds Amantadine [Symmetrel] 100 mg PO BID 11/28/14 [History] Carbidopa/Levodopa [Sinemet 25-100 mg] 1 tab PO BEDTIME 11/28/14 [History] Sertraline [Zoloft] 100 mg PO DAILY 11/28/14 [History] rOPINIRole HCl [Requip] 2 mg PO BID 12/22/16 [History] Carbidopa/Levodopa [Carbidopa-Levo 10-100 MG ODT] 100 mg PO Q8HR 10/29/17 [ History] Past Medical History HEENT History: Reports: None Other HEENT History: glasses Cardiovascular History: Reports: None Respiratory History: Reports: None Gastrointestinal History: Reports: Chronic Constipation Genitourinary History: Reports: BPH, Prostate Disorder Other Genitourinary History: enlarged prostate Musculoskeletal History: Reports: None Neurological History: Reports: Parkinson's Psychiatric History: Reports: Anxiety Endocrine/Metabolic History: Reports: None Hematologic History: Reports: None Immunologic History: Reports: None Oncologic (Cancer) History: Reports: None Dermatologic History: Reports: None - Infectious Disease History Infectious Disease History: Reports: Chicken Pox, Measles, Mumps - Past Surgical History Head Surgeries/Procedures: Reports: None HEENT Surgical History: Reports: None Cardiovascular Surgical History: Reports: None Respiratory Surgical History: Reports: None GI Surgical History: Reports: None Male Surgical History: Reports: None Neurological Surgical History: Reports: None Musculoskeletal Surgical History: Reports: Knee Replacement Oncologic Surgical History: Reports: None Dermatological Surgical History: Reports: Skin Biopsy Social & Family History - Family History Family Medical History: Noncontributory - Tobacco Use Smoking Status *Q: Never Smoker - Caffeine Use Caffeine Use: Reports: Coffee - Alcohol Use Days Per Week of Alcohol Use: 0 - Recreational Drug Use Recreational Drug Use: No ED ROS GENERAL - Review of Systems Review Of Systems: ROS reveals no pertinent complaints other than HPI. ED EXAM, GENERAL - Physical Exam Exam: See Below (See dictation) Course - Vital Signs Last Recorded V/S: Last Vital Signs Temp 36.4 C 10/29/17 11:14 Pulse 73 10/29/17 12:40 Resp 18 10/29/17 12:40 BP 140/79 10/29/17 12:40 Pulse Ox 99 10/29/17 12:40 - Orders/Labs/Meds Orders: Active Orders 24 hr Category Date Time Status Patient Status [ADT] Stat ADT 10/29/17 12:51 Ordered Blood Glucose Check, Bedside [RC] ONETIME Care 10/29/17 11:27 Active Cardiac Monitoring [RC] . DIRECTED Care 10/29/17 11:26 Active EKG Documentation Completion [RC] STAT Care 10/29/17 11:26 Active Oxygen Therapy, ED [RC] ASDIRECTED Care 10/29/17 11:26 Active Pulse Oximetry [RC] ASDIRECTED Care 10/29/17 11:26 Active Chest 1V Frontal [CR] Stat Exams 10/29/17 11:27 Taken Head wo Cont [CT] Stat Exams 10/29/17 11:27 Taken COMPREHENSIVE METABOLIC PN,CMP [CHEM] Stat Lab 10/29/17 11:37 Results TROPONIN I [CHEM] Stat Lab 10/29/17 11:37 Results TSH [CHEM] Stat Lab 10/29/17 11:37 Results Sodium Chloride 0.9% [Saline Flush] Med 10/29/17 11:26 Active 10 ml FLUSH ASDIRECTED PRN Sodium Chloride 0.9% [Saline Flush] Med 10/29/17 11:26 Active 2.5 ml FLUSH ASDIRECTED PRN Saline Lock Insert [OM.PC] Stat Oth 10/29/17 11:26 Ordered Medication Orders Sodium Chloride (Saline Flush) 10 ml FLUSH ASDIRECTED PRN PRN Reason: Keep Vein Open Last Admin: 10/29/17 11:37 Dose: 10 ml Sodium Chloride (Saline Flush) 2.5 ml FLUSH ASDIRECTED PRN PRN Reason: Keep Vein Open Last Admin: 10/29/17 11:37 Dose: 2.5 ml Labs: Laboratory Tests 10/29/17 10/29/17 10/29/17 Range/Units 11:37 11:37 11:37 WBC 9.50 (4.0-11.0) K/uL RBC 4.78 (4.50-5.90) M/uL Hgb 12.8 L (13.0-17.0) g/dL Hct 39.5 (38.0-50.0) % MCV 82.6 (80.0-98.0) fL MCH 26.8 L (27.0-32.0) pg MCHC 32.4 (31.0-37.0) g/dL RDW Std Deviation 42.1 (28.0-62.0) fl RDW Coeff of Annamaria 14 (11.0-15.0) % Plt Count 195 (150-400) K/uL MPV 9.70 (7.40-12.00) fL Neut % (Auto) 79.3 (48.0-80.0) % Lymph % (Auto) 11.9 L (16.0-40.0) % [place] % (Auto) 7.6 (0.0-15.0) % Eos % (Auto) 0.9 (0.0-7.0) % Baso % (Auto) 0.3 (0.0-1.5) % Neut # (Auto) 7.5 H (1.4-5.7) K/uL Lymph # (Auto) 1.1 (0.6-2.4) K/uL [place] # (Auto) 0.7 (0.0-0.8) K/uL Eos # (Auto) 0.1 (0.0-0.7) K/uL Baso # (Auto) 0.0 (0.0-0.1) K/uL Nucleated RBC % 0.0 /100WBC Nucleated RBCs # 0 K/uL INR 1.04 Sodium 139 (136-146) mmol/L Potassium 4.1 (3.5-5.1) mmol/L Chloride 104 (98-110) mmol/L Carbon Dioxide 26 (21-31) mmol/L BUN 21 (6.0-23.0) mg/dL Creatinine 1.5 (0.6-1.5) mg/dL Est Cr Clr Drug Dosing 50.65 mL/min Estimated GFR (MDRD) 45.9 ml/min Glucose 104 (60-110) mg/dL POC Glucose (60-110) mg/dL Calcium 10.3 (8.8-10.8) mg/dL Total Bilirubin 0.4 (0.1-1.5) mg/dL AST 14 (5-40) IU/L ALT < 6 L (8-54) IU/L Alkaline Phosphatase 105 (40-150) Troponin I < 0.10 (0.0-0.29) NG/ML Total Protein 6.6 (6.0-8.0) g/dL Albumin 3.8 (3.4-4.8) g/dL Globulin 2.8 (2.0-3.5) g/dL Albumin/Globulin Ratio 1.4 (1.3-2.8) 10/29/17 Range/Units 11:42 WBC (4.0-11.0) K/uL RBC (4.50-5.90) M/uL Hgb (13.0-17.0) g/dL Hct (38.0-50.0) % MCV (80.0-98.0) fL MCH (27.0-32.0) pg MCHC (31.0-37.0) g/dL RDW Std Deviation (28.0-62.0) fl RDW Coeff of Annamaria (11.0-15.0) % Plt Count (150-400) K/uL MPV (7.40-12.00) fL Neut % (Auto) (48.0-80.0) % Lymph % (Auto) (16.0-40.0) % [place] % (Auto) (0.0-15.0) % Eos % (Auto) (0.0-7.0) % Baso % (Auto) (0.0-1.5) % Neut # (Auto) (1.4-5.7) K/uL Lymph # (Auto) (0.6-2.4) K/uL [place] # (Auto) (0.0-0.8) K/uL Eos # (Auto) (0.0-0.7) K/uL Baso # (Auto) (0.0-0.1) K/uL Nucleated RBC % /100WBC Nucleated RBCs # K/uL INR Sodium (136-146) mmol/L Potassium (3.5-5.1) mmol/L Chloride (98-110) mmol/L Carbon Dioxide (21-31) mmol/L BUN (6.0-23.0) mg/dL Creatinine (0.6-1.5) mg/dL Est Cr Clr Drug Dosing mL/min Estimated GFR (MDRD) ml/min Glucose (60-110) mg/dL POC Glucose 109 (60-110) mg/dL Calcium (8.8-10.8) mg/dL Total Bilirubin (0.1-1.5) mg/dL AST (5-40) IU/L ALT (8-54) IU/L Alkaline Phosphatase (40-150) Troponin I (0.0-0.29) NG/ML Total Protein (6.0-8.0) g/dL Albumin (3.4-4.8) g/dL Globulin (2.0-3.5) g/dL Albumin/Globulin Ratio (1.3-2.8) Meds: Medications Generic Name Dose Route Start Last Admin Trade Name Freq PRN Reason Stop Dose Admin Sodium Chloride 10 ml 10/29/17 11:26 10/29/17 11:37 Saline Flush FLUSH 10 ml ASDIRECTED PRN Administration Keep Vein Open Sodium Chloride 2.5 ml 10/29/17 11:26 10/29/17 11:37 Saline Flush FLUSH 2.5 ml ASDIRECTED PRN Administration Keep Vein Open Discontinued Medications Generic Name Dose Route Start Last Admin Trade Name Vero PRN Reason Stop Dose Admin Aspirin 325 mg 10/29/17 12:11 10/29/17 12:39 Aspirin PO 10/29/17 12:12 325 mg ONETIME ONE Administration Departure - Departure Time of Disposition: 12:54 Disposition: Refer to Observation Condition: Good Clinical Impression: Syncope Qualifiers: Syncope type: unspecified Qualified Code(s): R55 - Syncope and collapse - Discharge Information Forms: ED Department Discharge - My Orders Last 24 Hours: My Active Orders 10/29/17 11:26 Cardiac Monitoring [RC] . DIRECTED EKG Documentation Completion [RC] STAT Oxygen Therapy, ED [RC] ASDIRECTED Pulse Oximetry [RC] ASDIRECTED Sodium Chloride 0.9% [Saline Flush] 10 ml FLUSH ASDIRECTED PRN Sodium Chloride 0.9% [Saline Flush] 2.5 ml FLUSH ASDIRECTED PRN Saline Lock Insert [OM.PC] Stat 10/29/17 11:27 Blood Glucose Check, Bedside [RC] ONETIME Chest 1V Frontal [CR] Stat Head wo Cont [CT] Stat 10/29/17 11:37 COMPREHENSIVE METABOLIC PN,CMP [CHEM] Stat TROPONIN I [CHEM] Stat TSH [CHEM] Stat 10/29/17 12:51 Patient Status [ADT] Stat - Assessment/Plan Last 24 Hours: My Active Orders 10/29/17 11:26 Cardiac Monitoring [RC] . DIRECTED EKG Documentation Completion [RC] STAT Oxygen Therapy, ED [RC] ASDIRECTED Pulse Oximetry [RC] ASDIRECTED Sodium Chloride 0.9% [Saline Flush] 10 ml FLUSH ASDIRECTED PRN Sodium Chloride 0.9% [Saline Flush] 2.5 ml FLUSH ASDIRECTED PRN Saline Lock Insert [OM.PC] Stat 10/29/17 11:27 Blood Glucose Check, Bedside [RC] ONETIME Chest 1V Frontal [CR] Stat Head wo Cont [CT] Stat 10/29/17 11:37 COMPREHENSIVE METABOLIC PN,CMP [CHEM] Stat TROPONIN I [CHEM] Stat TSH [CHEM] Stat 10/29/17 12:51 Patient Status [ADT] Stat
[2017-10-29] MEDS ORDERED: Aspirin 325 MG Tab PO ONE (12:11)
[2017-10-29 12:20] LABS: CHLORIDE,CL 104 mmol/L (98-110); SODIUM,NA 139 mmol/L (136-146)
--- NOTE | 2017-10-29 14:40 | PCM.HP ---
H&P History of Present Illness - History of Present Illness Initial Comments - Free Text/Narative: 72 yo male with pmh of parkinson's disease and orthostatic hypotension who presents following a syncopal episode. Patient was sitting on a counter stool when he passed out. His noticed him starring blankly so she was able to get to him and have him fall slowly to the ground. He has been having falls and collapses recently but this was the first time he lost consciousness. The syncopal episode lasted about a minute. He denies any shortness of breath, chest pain, or fevers. - Related Data Allergies/Adverse Reactions: Allergies Allergy/AdvReac Type Severity Reaction Status Date / Time [id number] Reductase Allergy Other Verified 10/29/17 14:55 Inhibitor tamsulosin Allergy Hypotension Verified 10/29/17 11:14 Home Medications: Home Meds Amantadine [Symmetrel] 100 mg PO BID 11/28/14 [History] Sertraline [Zoloft] 100 mg PO DAILY 11/28/14 [History] rOPINIRole HCl [Requip] 2 mg PO BID 12/22/16 [History] Carbidopa/Levodopa [Carbidopa-Levo ER 50-200] 50 - 200 mg PO BEDTIME 10/29/17 [ History] Carbidopa/Levodopa [Carbidopa-Levodopa 25-100] 50 - 200 mg PO Q3H 10/29/17 [ History] Cholecalciferol (Vitamin D3) [Vitamin D3] 4,000 unit PO DAILY 10/29/17 [History] Polyethylene Glycol 3350 [MiraLAX] 17 gm PO DAILY 10/29/17 [History] Past Medical History HEENT History: Reports: None Other HEENT History: glasses Cardiovascular History: Reports: None Respiratory History: Reports: None Gastrointestinal History: Reports: Chronic Constipation Genitourinary History: Reports: BPH, Prostate Disorder Other Genitourinary History: enlarged prostate Musculoskeletal History: Reports: None Neurological History: Reports: Parkinson's Psychiatric History: Reports: Anxiety Endocrine/Metabolic History: Reports: None Hematologic History: Reports: None Immunologic History: Reports: None Oncologic (Cancer) History: Reports: None Dermatologic History: Reports: None - Infectious Disease History Infectious Disease History: Reports: Chicken Pox, Measles, Mumps - Past Surgical History Head Surgeries/Procedures: Reports: None HEENT Surgical History: Reports: None Cardiovascular Surgical History: Reports: None Respiratory Surgical History: Reports: None GI Surgical History: Reports: None Male Surgical History: Reports: None Neurological Surgical History: Reports: None Musculoskeletal Surgical History: Reports: Knee Replacement Oncologic Surgical History: Reports: None Dermatological Surgical History: Reports: Skin Biopsy Social & Family History - Family History Family Medical History: Noncontributory - Tobacco Use Smoking Status *Q: Never Smoker - Caffeine Use Caffeine Use: Reports: Coffee - Alcohol Use Days Per Week of Alcohol Use: 0 - Recreational Drug Use Recreational Drug Use: No H&P Review of Systems - Review of Systems: Review Of Systems: ROS reveals no pertinent complaints other than HPI. Exam - Exam Exam: See Below - Vital Signs Vital Signs: Last Vital Signs Temp 36.4 C 10/29/17 11:14 Pulse 69 10/29/17 13:47 Resp 18 10/29/17 13:47 BP 166/97 H 10/29/17 13:47 Pulse Ox 100 10/29/17 13:47 Weight: 81.647 kg - Exam General: Alert, Cooperative HEENT: Mucosa Moist & [employer] Neck: Supple, Trachea Midline Lungs: Normal Respiratory Effort Cardiovascular: Regular Rate, Regular Rhythm GI/Abdominal Exam: Soft, Non-Tender Extremities: No Pedal Edema Neurological: Cranial Nerves Intact, Reflexes Equal Bilateral, Strength Equal Bilateral, Other (shuffled gate, slow finger pointing, cogwheeled muscle tone) - Patient Data Result Diagrams: 10/29/17 11:37 10/29/17 11:37 *Q Meaningful Use (ADM) - VTE *Q VTE Criteria *Q: - Stroke *Q Stroke Criteria *Q: - AMI *Q AMI Criteria *Q: Problem List Initiated/Reviewed/Updated: Yes Orders Last 24hrs: Active Orders 24 hr Category Date Time Status Antiembolic Devices [RC] PER UNIT ROUTINE Care 10/29/17 14:35 Ordered Oxygen Therapy [RC] PRN Care 10/29/17 14:34 Ordered VTE/DVT Education [RC] PER UNIT ROUTINE Care 10/29/17 14:34 Ordered Vital Signs [RC] Q4H Care 10/29/17 14:34 Ordered Regular Diet [DIET] Diet 10/29/17 Breakfast Ordered Amantadine [Symmetrel] Med 10/29/17 21:00 Ordered 100 mg PO BID Carbidopa/Levodopa [Carbidopa-Levo 10-100 MG ODT] Med 10/29/17 22:00 Ordered 100 mg PO Q8HR Carbidopa/Levodopa [Sinemet 25-100 mg] Med 10/29/17 21:00 Ordered 1 tab PO BEDTIME Sertraline [Zoloft] Med 10/30/17 09:00 Ordered 100 mg PO DAILY rOPINIRole HCl [Requip] Med 10/29/17 21:00 Ordered 2 mg PO BID Sequential Compression Device [OM.PC] Per Unit Routine Oth 10/29/17 14:35 Ordered Resuscitation Status Routine Resus Stat 10/29/17 14:34 Ordered Medication Orders Amantadine HCl (Symmetrel) 100 mg PO BID [facility] Carbidopa/Levodopa (Sinemet 25-100 Mg) 1 tab PO BEDTIME [facility] Non-Formulary Medication (Carbidopa/Levodopa [Carbidopa-Levo 10-100 Mg Odt]) 100 mg PO Q8HR [facility] Non-Formulary Medication (Ropinirole Hcl [Requip]) 2 mg PO BID [facility] Sertraline HCl (Zoloft) 100 mg PO DAILY [facility] Sodium Chloride (Saline Flush) 10 ml FLUSH ASDIRECTED PRN PRN Reason: Keep Vein Open Last Admin: 10/29/17 11:37 Dose: 10 ml Sodium Chloride (Saline Flush) 2.5 ml FLUSH ASDIRECTED PRN PRN Reason: Keep Vein Open Last Admin: 10/29/17 11:37 Dose: 2.5 ml Assessment/Plan Comment:: 72 yo male with pmh of Parkinson's disease who presents with syncopy. We will monitor overnight on telemetry.
[2017-10-29] MEDS ORDERED: Carbidopa/Levodopa 25-100 MG Tab PO SCH ×2 (16:00→18:00)
[2017-10-29] MEDS: Amantadine 100 MG Cap PO SCH (20:54)
[2017-10-29] MEDS: rOPINIRole 1 MG Tab PO SCH (20:55)
[2017-10-29] MEDS ORDERED: Carbidopa/Levodopa 50-200 MG Tab.ER PO SCH (21:00)
[2017-10-29] MEDS: Polyethylene Glycol 3350 Powder 17 GM Packet PO SCH (23:59)
[2017-10-30] MEDS: Carbidopa/Levodopa 25-100 MG Tab PO SCH ×4 (06:21→16:08)
[2017-10-30] MEDS: Amantadine 100 MG Cap PO SCH (08:26)
[2017-10-30] MEDS: rOPINIRole 1 MG Tab PO SCH (08:26)
[2017-10-30] MEDS: Polyethylene Glycol 3350 Powder 17 GM Packet PO SCH (08:27)
[2017-10-30] MEDS ORDERED: Sertraline 100 MG Tab PO SCH (09:00)
[2017-10-30 13:15] VITALS: BP 109/62
--- NOTE | 2017-10-30 16:04 | CT ---
EXAM DATE: 10/29/17 PATIENT'S AGE: 72 Patient: AKILA CARO Facility: [place], [place] Site . Site : 1945 Study: CT Head WO CONT [id number]/4/2018 11:58:43 AM Ordering Physician: Sigifredo Prado Final Report: INDICATION: Slurred speech. COMPARISON: CT head without intravenous contrast December 29, 2016. TECHNIQUE: CT head without intravenous contrast; coronal and sagittal reformats. FINDINGS: There is evidence of atrophy involving the cerebellum. No intracranial hemorrhage. No mass lesions. No evidence of shift of the midline structures. Periventricular low densities secondary to small vessel disease stable in appearance. The calvarium is unremarkable. Mild brain atrophy. IMPRESSION: 1. No intracranial hemorrhage. 2. No mass lesions or shift of the midline structures. 3. Evidence of small vessel disease. 4. Cerebellar atrophy. 5. No interval change. Please note that all CT scans at this facility use dose modulation, iterative reconstruction, and/or weight-based dosing when appropriate to reduce radiation dose to as low as reasonably achievable. Dictated by Katie Cunningham MD @ Oct 29 2017 12:03PM (Electronic Signature) Report Signed by Proxy. MTDJose D
--- NOTE | 2017-10-30 16:04 | CR ---
EXAM DATE: 10/29/17 PATIENT'S AGE: 72 Patient: [facility] Facility: [place], [place] Site . Site : 1945 Study: XRay Chest [id number]/4/2018 12:00:40 PM Ordering Physician: Sigifredo Prado Final Report: INDICATION: Chest pain; shortness of breath. COMPARISON: Chest radiograph December 29, 2016. TECHNIQUE: Portable AP chest. FINDINGS: Normal size cardiac silhouette. Clear lung crowe without evidence of acute pneumonic infiltrates or CHF. No pneumothorax or pleural effusion. Impaction: Negative chest. Dictated by Katie Cunningham MD @ Oct 29 2017 12:07PM (Electronic Signature) Report Signed by Proxy. GRACIELA
--- NOTE | 2017-10-30 16:47 | PCM.DCSUM1 ---
<Jerome Trejo - Last Filed: 10/30/17 16:46> Discharge Summary - Hospital Course Free Text/Narrative:: Admission date: October 29, 2017 Discharge date: October 30, 2017 Admission diagnosis: #1. Syncopal episode #2. History of Parkinson's Discharge diagnosis: #1. Syncopal episode #2. History of Parkinson's Hospital course: 72-year-old male with above-mentioned history that presented to the emergency department accompanied by his after having a witnessed syncopal episode while sitting down at the breakfast table. As per the , he had an episode where he seemed to have stopped concentrating on what what she was saying and slowly put his head down. She is unaware of how long this lasted for, and when he he finally got up, his speech was not coherent. This lasted for a couple of minutes at the most according to the light. He denied any fall, chest pain, palpitations, seizure-like activity. No recent change in medications. Patient was then admitted for observation and placed on telemetry. He had no further events on telemetry, vital signs remained stable. Orthostatic vital signs are negative. Patient was ultimately discharged and was advised to follow-up with primary care. Syncopal episode may have been secondary to medication side effect, or vasovagal. - Discharge Data Discharge Date: 10/30/17 Discharge Disposition: Home, Self-Care 01 Condition: Fair - Discharge Plan Home Medications: Home Meds Amantadine [Symmetrel] 100 mg PO BID 11/28/14 [History] Sertraline [Zoloft] 100 mg PO DAILY 11/28/14 [History] rOPINIRole HCl [Requip] 2 mg PO BID 12/22/16 [History] Carbidopa/Levodopa [Carbidopa-Levo ER 50-200] 50 - 200 mg PO BEDTIME 10/29/17 [ History] Carbidopa/Levodopa [Carbidopa-Levodopa 25-100] 50 - 200 mg PO Q3H 10/29/17 [ History] Cholecalciferol (Vitamin D3) [Vitamin D3] 4,000 unit PO DAILY 10/29/17 [History] Polyethylene Glycol 3350 [MiraLAX] 17 gm PO DAILY 10/29/17 [History] Patient Handouts: Syncope, [id number] Referrals: Nate Pitt MD [Primary Care Provider] - 11/03/17 8:00 am - Discharge Summary/Plan Comment Discharge Summary/Plan Comment: Admission date: October 29, 2017 Discharge date: October 30, 2017 Admission diagnosis: #1. Syncopal episode #2. History of Parkinson's Discharge diagnosis: #1. Syncopal episode #2. History of Parkinson's Hospital course: 72-year-old male with above-mentioned history that presented to the emergency department accompanied by his after having a witnessed syncopal episode while sitting down at the breakfast table. As per the , he had an episode where he seemed to have stopped concentrating on what what she was saying and slowly put his head down. She is unaware of how long this lasted for, and when he he finally got up, his speech was not coherent. This lasted for a couple of minutes at the most according to the light. He denied any fall, chest pain, palpitations, seizure-like activity. No recent change in medications. Patient was then admitted for observation and placed on telemetry. He had no further events on telemetry, vital signs remained stable. Orthostatic vital signs are negative. Patient was ultimately discharged and was advised to follow-up with primary care. Syncopal episode may have been secondary to medication side effect, or vasovagal. - Patient Data Vitals - Most Recent: Last Vital Signs Temp 36.6 C 10/30/17 12:00 Pulse 83 10/30/17 12:00 Resp 20 10/30/17 12:00 BP 109/62 10/30/17 12:00 Pulse Ox 96 10/30/17 12:00 Orthostatic Blood Pressure [ 116/72 Standing] Orthostatic Blood Pressure [ 126/69 Sitting] Orthostatic Blood Pressure [ 147/87 Supine] Weight - Most Recent: 81.647 kg I&O - Last 24 hours: Intake & Output 10/30/17 10/30/17 10/30/17 06:59 14:59 22:59 Intake Total 600 Output Total 1350 Balance -750 Med Orders - Current: Current Medications Amantadine HCl (Symmetrel) 100 mg PO BID [facility] Last Admin: 10/30/17 08:26 Dose: 100 mg Carbidopa/Levodopa (Sinemet Cr 50-200 Mg) 1 tab PO BEDTIME [facility] Last Admin: 10/29/17 20:54 Dose: 1 tab Carbidopa/Levodopa (Sinemet 25-100 Mg) 2 tab PO 1800 [facility] Last Admin: 10/29/17 18:19 Dose: 2 tab Carbidopa/Levodopa (Sinemet 25-100 Mg) 2 tab PO 0600,0900,1200,1500 [facility] Last Admin: 10/30/17 16:08 Dose: 2 tab Polyethylene Glycol (Miralax) 17 gm PO DAILY [facility] Last Admin: 10/30/17 08:27 Dose: 17 gm Ropinirole HCl (Requip) 2 mg PO BID [facility] Last Admin: 10/30/17 08:26 Dose: 2 mg Sertraline HCl (Zoloft) 100 mg PO DAILY [facility] Last Admin: 10/30/17 08:26 Dose: 100 mg Sodium Chloride (Saline Flush) 10 ml FLUSH ASDIRECTED PRN PRN Reason: Keep Vein Open Last Admin: 10/29/17 11:37 Dose: 10 ml Sodium Chloride (Saline Flush) 2.5 ml FLUSH ASDIRECTED PRN PRN Reason: Keep Vein Open Last Admin: 10/29/17 11:37 Dose: 2.5 ml Discontinued Medications Aspirin (Aspirin) 325 mg PO ONETIME ONE Stop: 10/29/17 12:12 Last Admin: 10/29/17 12:39 Dose: 325 mg Carbidopa/Levodopa (Sinemet 25-100 Mg) 1 tab PO 0600,0900,1200,1500 [facility] *Q Meaningful Use (DIS) - VTE *Q VTE Criteria *Q: - Stroke *Q Stroke Criteria *Q: - AMI *Q AMI Criteria *Q: <Shiv Balderrama - Last Filed: 10/31/17 17:54> - Patient Data Vitals - Most Recent: Last Vital Signs Temp 36.6 C 10/30/17 12:00 Pulse 83 10/30/17 12:00 Resp 20 10/30/17 12:00 BP 109/62 10/30/17 12:00 Pulse Ox 96 10/30/17 12:00 Orthostatic Blood Pressure [ 116/72 Standing] Orthostatic Blood Pressure [ 126/69 Sitting] Orthostatic Blood Pressure [ 147/87 Supine] Med Orders - Current: Current Medications Discontinued Medications Amantadine HCl (Symmetrel) 100 mg PO BID [facility] Last Admin: 10/30/17 08:26 Dose: 100 mg Aspirin (Aspirin) 325 mg PO ONETIME ONE Stop: 10/29/17 12:12 Last Admin: 10/29/17 12:39 Dose: 325 mg Carbidopa/Levodopa (Sinemet 25-100 Mg) 1 tab PO 0600,0900,1200,1500 [facility] Carbidopa/Levodopa (Sinemet Cr 50-200 Mg) 1 tab PO BEDTIME [facility] Last Admin: 10/29/17 20:54 Dose: 1 tab Carbidopa/Levodopa (Sinemet 25-100 Mg) 2 tab PO 1800 [facility] Last Admin: 10/29/17 18:19 Dose: 2 tab Carbidopa/Levodopa (Sinemet 25-100 Mg) 2 tab PO 0600,0900,1200,1500 [facility] Last Admin: 10/30/17 16:08 Dose: 2 tab Polyethylene Glycol (Miralax) 17 gm PO DAILY [facility] Last Admin: 10/30/17 08:27 Dose: 17 gm Ropinirole HCl (Requip) 2 mg PO BID [facility] Last Admin: 10/30/17 08:26 Dose: 2 mg Sertraline HCl (Zoloft) 100 mg PO DAILY [facility] Last Admin: 10/30/17 08:26 Dose: 100 mg Sodium Chloride (Saline Flush) 10 ml FLUSH ASDIRECTED PRN PRN Reason: Keep Vein Open Last Admin: 10/29/17 11:37 Dose: 10 ml Sodium Chloride (Saline Flush) 2.5 ml FLUSH ASDIRECTED PRN PRN Reason: Keep Vein Open Last Admin: 10/29/17 11:37 Dose: 2.5 ml *Q Meaningful Use (DIS) - VTE *Q VTE Criteria *Q: - Stroke *Q Stroke Criteria *Q: - AMI *Q AMI Criteria *Q: - Free Text/Narrative Note: I have examined the patient. I have discussed findings and treatment plan with resident. I agree with the assessment and plan outlined in the following resident's note.
--- NOTE | 2017-11-01 14:19 | ECHO ---
EXAM DATE: 10/29/17 PATIENT'S AGE: 72 The echocardiogram report can be seen in this patient's EMR (Electronic Medical Record) in the Reports section. The report has also been scanned into PACs. GRACIELA
== END 2017-10-30 16:55 | disposition home or self-care (01) ==
LOC: MW.ED 11:13 → MW.MS 13:03
PROVIDERS: ADMIT Internal Medicine; ATTEND Internal Medicine
DX: R55 Syncope and collapse (principal); G20 Parkinson's disease; F41.9 Anxiety disorder, unspecified; N40.0 Benign prostatic hyperplasia without lower urinary tract symptoms; K59.09 Other constipation; Z79.899 Other long term (current) drug therapy; Z88.8 Allergy status to other drugs, medicaments and biological substances; Z96.659 Presence of unspecified artificial knee joint; Z98.890 Other specified postprocedural states
CPT/HCPCS: 36415; 70450; 71045; 80053; 82962; 84443; 84484; 85025; 85610; 93005; 93306; 99285; A9270; G0378; 99284